=== PATIENT | male | born 1965 | race Caucasian/White ===

== ENCOUNTER 2017-08-15 17:27 | Emergency (ER) | payer OTHER, SELFPAY ==
[2017-08-15 17:34] VITALS: BP 147/91; PULSE 69; RESP 18; TEMP 36.9; O2SAT 98
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
[2017-08-15 19:18] VITALS: BP 135/94; PULSE 60; RESP 14; O2SAT 100
== END 2017-08-15 19:21 | disposition home or self-care (01) ==
PROVIDERS: Emergency Provider Emergency Medicine
DX: R51 Headache (principal); V49.9XXA Car occupant (driver) (passenger) injured in unspecified traffic accident, initial encounter
CPT/HCPCS: 81003; 99282